=== PATIENT | male | born 1980 | race Caucasian/White ===

== ENCOUNTER 2016-09-17 08:59 | Emergency (ER) | payer SELFPAY ==
[2016-09-17 09:09] VITALS: BP 190/116
--- NOTE | 2016-09-17 09:11 | EDM.PDOC ---
ED HPI GENERAL MEDICAL PROBLEM - General Chief Complaint: Eye Problems Stated Complaint: PAIN IN EYES Time Seen by Provider: 09/17/16 09:02 - History of Present Illness INITIAL COMMENTS - FREE TEXT/NARRATIVE: HISTORY AND PHYSICAL: History of present illness: The patient is a 35 y/o male with a history of diabetes and multiple eye procedures on both eyes including ocular decompressions and eyelid surgeries presents with complaints of pain to his right eye that has been ongoing for the last several days but worse today. The patient's vision in his right eye is just light and shapes and he also has diminished vision in his left eye. Patient denies any recent trauma and has no headache nausea or vomiting. The patient is extremely light sensitive and he wants me of that and says that his pain is localized in both eyes but mostly the right eye. He has had this before when he has had issues requiring operative intervention and he is worried about that Review of systems: As per history of present illness and below otherwise all systems reviewed and negative. Past medical history: As per history of present illness and as reviewed below otherwise noncontributory. Surgical history: As per history of present illness and as reviewed below otherwise noncontributory. Social history: No reported history of drug or alcohol abuse. Family history: As per history of present illness and as reviewed below otherwise noncontributory. Physical exam: General: Well-developed well-nourished man who is extremely photophobic and very intolerant of eye exam and seems very anxious in the room HEENT: Atraumatic, normocephalic, sclera are injected bilaterally and there is some proptosis seen of bilateral eyes, negative for conjunctival pallor or scleral icterus, mucous membranes moist, throat clear, neck supple, nontender, trachea midline. The patient is extremely photophobic and it is challenging to even do the simplest of exams so I will defer for ophthalmology Lungs: Clear to auscultation, breath sounds equal bilaterally, chest nontender. Heart: S1S2, regular rate and rhythm no overt murmurs Abdomen: Soft, nondistended, nontender. NABS Pelvis: Deferred Genitourinary: Deferred. Rectal: Deferred. Extremities: Atraumatic, negative for cords or calf pain. Neurovascular unremarkable. Neuro: Awake, alert, oriented. Motor and sensory unremarkable throughout. Exam nonfocal. Diagnostics: Due to the inability to tolerate light and the pain he is experiencing the patient was really unable to do a visual acuity Therapeutics: 0924: Case was discussed with Kymberly the nurse for Dr. Boyd at [facility] and she asked that the patient be discharged and come right over to be seen. She will relay the information on to Dr. Boyd. Impression: Bilateral/right eye pain with history of multiple operative interventions Definitive disposition and diagnosis as appropriate pending reevaluation and review of above. Bilateral Eye Pain Score (Numeric/FACES): 7 - Related Data Allergies Allergy/AdvReac Type Severity Reaction Status Date / Time No Known Allergies Allergy Verified 09/17/16 09:09 Home Meds: Home Meds Insulin Glarg,Human.Rec.Analog [Lantus] 20 units SQ BEDTIME 09/17/16 [History] Insulin Lispro Prot/Lispro [HumaLOG Mix 75-25] 15 - 25 units SQ ASDIRECTED 09/17 [History] ED ROS GENERAL - Review of Systems Review Of Systems: ROS reveals no pertinent complaints other than HPI. ED EXAM GENERAL W FULL EYE - Physical Exam Exam: See Below (See dictation) Course - Vital Signs Last Recorded V/S: Last Vital Signs Temp 36.1 C 09/17/16 09:07 Pulse 77 09/17/16 09:07 Resp 18 09/17/16 09:07 BP 190/116 H 09/17/16 09:07 Pulse Ox 100 09/17/16 09:07 Departure - Departure Time of Disposition: 09:25 Disposition: Home, Self-Care 01 Condition: fair Clinical Impression: Eye pain Qualifiers: Laterality: bilateral Qualified Code(s): H57.13 - Ocular pain, bilateral - Discharge Information Forms: ED Department Discharge Additional Instructions: The following information is given to patients seen in the emergency department who are being discharged to home. This information is to outline your options for follow-up care. We provide all patients seen in our emergency department with a follow-up referral. The need for follow-up, as well as the timing and circumstances, are variable depending upon the specifics of your emergency department visit. If you don't have a primary care physician on staff, we will provide you with a referral. We always advise you to contact your personal physician following an emergency department visit to inform them of the circumstance of the visit and for follow-up with them and/or the need for any referrals to a consulting specialist. The emergency department will also refer you to a specialist when appropriate. This referral assures that you have the opportunity for followup care with a specialist. All of these measure are taken in an effort to provide you with optimal care, which includes your followup. Under all circumstances we always encourage you to contact your private physician who remains a resource for coordinating your care. When calling for followup care, please make the office aware that this follow-up is from your recent emergency room visit. If for any reason you are refused follow-up, please contact the [facility] emergency department at and ask to speak to the emergency department charge nurse. [address] [place] [address] Please leave the ER and go directly across [facility] to [facility] [address] to be seen by Dr. Boyd in the ophthalmology clinic. Return to ER as needed and as discussed
== END 2016-09-17 09:36 | disposition home or self-care (01) ==
LOC: MW.ED 08:59
DX: H57.13 Ocular pain, bilateral (principal); E11.9 Type 2 diabetes mellitus without complications
CPT/HCPCS: 99282; 99283